=== PATIENT | female | born 1995 | race Caucasian/White ===

== ENCOUNTER → 2020-06-08 | Outpatient (CLI) | payer OTHER ==
--- NOTE | 2020-06-08 15:49 | US ---
EXAMINATION TYPE: US transvaginal DATE OF EXAM: 06/08/2020 COMPARISON: NONE CLINICAL HISTORY: R10.2 PELVIC PAIN. arm implant control for 6 years, pelvic pain for 5 days. p terra has not had a period for 6 years since on control and just started bleeding 4 days ago TECHNIQUE: Transvaginal (TV), patient bladder not fully distended Date of LMP: 06/04/20 EXAM MEASUREMENTS: Uterus: 5.7 x 2.5 x 3.1 cm Endometrial Stripe: 0.2 cm Right Ovary: 2.6 x 1.4 x 2.4 cm Left Ovary: 2.4 x 1.4 x 1.6 cm 1. Uterus: Anteverted fluid within cervical canal 2. Endometrium: fluid within 3. Right Ovary: follicles noted 4. Left Ovary: appears wnl 5. Bilateral Adnexa: large amount of peristalsing bowel content 6. Posterior cul-de-sac: appears wnl IMPRESSION: Small amount of endocervical fluid. Examination is otherwise unremarkable.
== END | disposition home or self-care (01) ==
LOC: RADUSWWP 15:06
PROVIDERS: ATTEND Obstetrics & Gynecology
DX: R10.2 Pelvic and perineal pain (principal)
CPT/HCPCS: 76830

== ENCOUNTER 2021-01-17 15:09 | Emergency (ER) | payer OTHER ==
[2021-01-17 15:22] VITALS: BP 129/71; PULSE 133; RESP 18; TEMP 98.2
[2021-01-17] MEDS ORDERED: ONDANSETRON 4 MG/2 ML VIAL IVP STA (15:39)
[2021-01-17] MEDS ORDERED: MORPHINE SULFATE 4 MG/ML SYRINGE IV STA (15:39)
[2021-01-17] MEDS ORDERED: diphenhydrAMINE 50 MG/ML 1 ML VIAL IVP STA (15:39)
[2021-01-17] MEDS ORDERED: SODIUM CHLORIDE 0.9% 1,000 ML IV STA (15:39)
--- NOTE | 2021-01-17 15:44 | ED ---
Headache HPI - General Chief Complaint: Headache Stated Complaint: Migraine, vomiting Time Seen by Provider: 01/17/21 15:29 Source: RN notes reviewed Mode of arrival: ambulatory Limitations: no limitations - History of Present Illness Initial Comments: 25-year-old female presents to the emergency department complaining of increased frequency of headache with nausea and vomiting. He noted that for the past 3 weeks she has been having 4-5 headaches per week with nausea and vomiting. She noted that she has had these headaches in the past but they're more frequent currently. She denied any increase in stress, anxiety, life stressors. She did note that there is a family history of migraines with her mom and grandma. She was in no apparent distress or discomfort while sitting up in bed during exam and interview. She noted that she was recently prescribed Imitrex by her primary care which a been helping but today it has been. She said the pain was moderate and Tylenol wasn't helping relieve it area she noted that she has had some phonophobia, when her dog bark she notices that her head pulsates when she is having headaches. She denied any change in vision lightheadedness dizziness chest pain shortness of breath cough fever fatigue chills diarrhea constipation. - Related Data Home Medications Medication Instructions Recorded Confirmed Dextroamphetamine/Amphetamine 20 mg PO BID PRN 01/17/21 01/17/21 [Adderall] Etonogestrel/Ethinyl Estradiol 1 ring VG Q84D 01/17/21 01/17/21 [Eluryng Vaginal Ring] SUMAtriptan succinate [Imitrex] 50 mg PO DAILY PRN 01/17/21 01/17/21 Allergies Allergy/AdvReac Type Severity Reaction Status Date / Time cephalexin [From Keflex] Allergy Rash/Hives Verified 01/17/21 15:22 nickel Allergy Rash/Hives Verified 01/17/21 15:22 Review of Systems ROS Statement: Those systems with pertinent positive or pertinent negative responses have been documented in the HPI. ROS Other: All systems not noted in ROS Statement are negative. Past Medical History Additional Past Medical History / Comment(s): Headaches, IBS History of Any Multi-Drug Resistant Organisms: None Reported Past Surgical History: Adenoidectomy, Tonsillectomy Past Psychological History: No Psychological Hx Reported Smoking Status: Never smoker Past Alcohol Use History: None Reported Past Drug Use History: None Reported General Exam Limitations: no limitations General appearance: alert, in no apparent distress Head exam: Present: atraumatic, normocephalic, normal inspection Eye exam: Present: normal appearance, PERRL, EOMI. Absent: scleral icterus, conjunctival injection, periorbital swelling ENT exam: Present: normal exam, mucous membranes moist Neck exam: Present: normal inspection. Absent: tenderness, meningismus, lymp hadenopathy Respiratory exam: Present: normal lung sounds bilaterally. Absent: respiratory distress, wheezes, rales, rhonchi, stridor Cardiovascular Exam: Present: regular rate, normal rhythm, normal heart sounds. Absent: systolic murmur, diastolic murmur, rubs, gallop, clicks GI/Abdominal exam: Present: soft, normal bowel sounds. Absent: distended, tenderness, guarding, rebound, rigid Extremities exam: Present: normal inspection, full ROM, normal capillary refill. Absent: tenderness, pedal edema, joint swelling, calf tenderness Back exam: Present: normal inspection Neurological exam: Present: alert, oriented X3, CN II-XII intact Psychiatric exam: Present: normal affect, normal mood Skin exam: Present: warm, dry, intact, normal color. Absent: rash Course Vital Signs 01/17/21 15:19 Temperature 98.2 F Pulse Rate 133 H Respiratory 18 Rate Blood Pressure 129/71 O2 Sat by Pulse 100 Oximetry - Reevaluation(s) Reevaluation #1: 01/17/21 16:44 Upon reevaluation patient was resting in bed comfortably stating that she was feeling a little bit better and the fluids and then occasional helping. Medical Decision Making - Medical Decision Making 25-year-old female complaining of headache with nausea and vomiting. 1 L of normal saline, 4 mg morphine, 4 mg of Zofran, 50 mg of Benadryl ordered. - Lab Data Result diagrams: 01/17/21 16:09 Lab Results 01/17/21 Range/Units 16:09 Sodium 139 (137-145) mmol/L Potassium 4.2 (3.5-5.1) mmol/L Chloride 106 (98-107) mmol/L Carbon Dioxide 24 (22-30) mmol/L Anion Gap 9 mmol/L BUN 14 (7-17) mg/dL Creatinine 0.74 (0.52-1.04) mg/dL Est GFR (CKD-EPI)AfAm >90 (>60 ml/min/1.73 sqM) Est GFR (CKD-EPI)NonAf >90 (>60 ml/min/1.73 sqM) Glucose 80 (74-99) mg/dL Calcium 9.5 (8.4-10.2) mg/dL Total Bilirubin 0.6 (0.2-1.3) mg/dL AST 20 (14-36) U/L ALT 17 (4-34) U/L Alkaline Phosphatase 49 (38-126) U/L Total Protein 7.3 (6.3-8.2) g/dL Albumin 4.4 (3.5-5.0) g/dL Disposition Clinical Impression: Migraine headache, Nausea and vomiting Disposition: HOME SELF-CARE Condition: Stable Instructions (If sedation given, give patient instructions): Acute Headache (ED) Additional Instructions: Please return to the Emergency Department if symptoms worsen or any other concerns. Follow-up with primary care 1-2 day, go to scheduled MRI as planned. Continue to take Imitrex that was prescribed by PCP. As needed. Increase fluid intake. Is patient prescribed a controlled substance at d/c from ED?: No Referrals: Chai Yeung MD [Primary Care Provider] - 1-2 days Time of Disposition: 16:45
[2021-01-17] MEDS ORDERED: KETOROLAC 15 MG/ML 1 ML VIAL IVP STA (16:03)
[2021-01-17 16:39] LABS: ALT 17 U/L (4-34); AST 20 U/L (14-36); African American GFR (CKD) >90 (>60 ml/min/1.73 sqM); Albumin 4.4 g/dL (3.5-5.0); Alkaline Phosphatase 49 U/L (38-126); Anion Gap 9 mmol/L; Blood Urea Nitrogen 14 mg/dL (7-17); Calcium 9.5 mg/dL (8.4-10.2); Carbon Dioxide 24 mmol/L (22-30); Chloride 106 mmol/L (98-107); Glucose 80 mg/dL (74-99); Non-African American GFR(CKD) >90 (>60 ml/min/1.73 sqM); Potassium 4.2 mmol/L (3.5-5.1); Sodium 139 mmol/L (137-145); Total Bilirubin 0.6 mg/dL (0.2-1.3); Total Protein 7.3 g/dL (6.3-8.2)
== END 2021-01-17 17:35 | disposition home or self-care (01) ==
LOC: EC 15:09
DX: G43.909 Migraine, unspecified, not intractable, without status migrainosus (principal); Z79.899 Other long term (current) drug therapy; Z88.1 Allergy status to other antibiotic agents; Z91.048 Other nonmedicinal substance allergy status
CPT/HCPCS: 36415; 80053; 99283; 96374; 96375 ×2; 96361; J1200; J2405; J1885

== ENCOUNTER → 2021-01-24 | Outpatient (CLI) | payer OTHER ==
--- NOTE | 2021-01-24 13:57 | MR ---
EXAMINATION TYPE: MR brain wo con DATE OF EXAM: 01/24/2021 COMPARISON: NONE HISTORY: Migraines increasing in frequency TECHNIQUE: Multiplanar, multisequence imaging of the brain and brainstem is performed without IV cont rast. FINDINGS: Diffusion weighted images demonstrate no evidence of a recent infarct or other diffusion abnormality. There is no extraaxial fluid collection or significant white matter signal abnormality. The ventricu lar system and cisternal spaces are normal in size and appearance. The brain volume is age appropria te. Midline structures demonstrate normal morphology. The craniocervical junction appears within normal limits. Normal vascular flow voids are present. Incidental dominant or larger caliber left vertebral artery. Some artifact distortion at the level of the bilateral globes. Mild mucosal thickening involv ing left ethmoid sinuses. IMPRESSION: No significant white matter changes. No hydrocephalus or Chiari malformation. Mild left-s ided chronic ethmoid sinus disease otherwise unremarkable study
== END | disposition home or self-care (01) ==
LOC: RADMRIMAIN 12:28
PROVIDERS: ATTEND Nurse Practitioner Family
DX: J32.2 Chronic ethmoidal sinusitis (principal); G43.909 Migraine, unspecified, not intractable, without status migrainosus
CPT/HCPCS: 70551

== ENCOUNTER 2022-10-24 08:10 | Emergency (ER) | payer OTHER ==
[2022-10-24 08:15] VITALS: RESP 16; TEMP 98.5
[2022-10-24] MEDS ORDERED: diphenhydrAMINE 50 MG/ML 1 ML VIAL IVP STA (08:22)
[2022-10-24] MEDS ORDERED: SODIUM CHLORIDE 0.9% 1,000 ML IV STA (08:22)
[2022-10-24] MEDS ORDERED: methylPREDNISolone SOD SUCCI 125 MG/2 ML VIAL IV STA (08:23)
--- NOTE | 2022-10-24 08:27 | ED ---
General Adult HPI - General Chief complaint: Nausea/Vomiting/Diarrhea Stated complaint: vomiting Time Seen by Provider: 10/24/22 08:18 Source: patient, RN notes reviewed, old records reviewed Mode of arrival: ambulatory Limitations: no limitations - History of Present Illness Initial comments: This is a nontoxic 26-year-old female that presents to the emergency room with complaints of nausea and vomiting related to migraine headache since 3 AM. Patient has a history of migraine headaches, states this is similar. Denies any fevers or abdominal pain. Denies any chance of . Has been prescribed Imitrex in the past for migraines however states she does not like the way the medication makes her feel. Last headache was several months ago. -: hour(s) (5) Location: head Radiation: non-radiation Severity scale (1-10): 6 Quality: constant Consistency: constant Associated Symptoms: nausea/vomiting Treatments Prior to Arrival: none - Related Data Home Medications Medication Instructions Recorded Confirmed Dextroamphetamine/Amphetamine 20 mg PO BID PRN 01/17/21 01/17/21 [Adderall] Etonogestrel/Ethinyl Estradiol 1 ring VG Q84D 01/17/21 01/17/21 [Eluryng Vaginal Ring] SUMAtriptan succinate [Imitrex] 50 mg PO DAILY PRN 01/17/21 01/17/21 Allergies Allergy/AdvReac Type Severity Reaction Status Date / Time cephalexin [From Keflex] Allergy Rash/Hives Verified 10/24/22 08:13 nickel Allergy Rash/Hives Verified 10/24/22 08:13 Patient : No Review of Systems ROS Statement: Those systems with pertinent positive or pertinent negative responses have been documented in the HPI. ROS Other: All systems not noted in ROS Statement are negative. Past Medical History Additional Past Medical History / Comment(s): Headaches, IBS History of Any Multi-Drug Resistant Organisms: None Reported Past Surgical History: Adenoidectomy, Tonsillectomy Past Psychological History: No Psychological Hx Reported Smoking Status: Never smoker Past Alcohol Use History: None Reported Past Drug Use History: None Reported General Exam Limitations: no limitations General appearance: alert, in no apparent distress Head exam: Present: atraumatic, normal inspection Eye exam: Absent: scleral icterus, conjunctival injection, periorbital swelling ENT exam: Present: mucous membranes moist Neck exam: Absent: tenderness, meningismus Respiratory exam: Present: normal lung sounds bilaterally. Absent: respiratory distress, accessory muscle use Cardiovascular Exam: Present: regular rate GI/Abdominal exam: Present: soft. Absent: distended, tenderness, rigid Extremities exam: Present: normal capillary refill. Absent: pedal edema Back exam: Absent: tenderness, CVA tenderness (R), CVA tenderness (L) Neurological exam: Present: alert, oriented X3 Psychiatric exam: Present: normal affect, normal mood Skin exam: Present: warm, normal color, diaphoretic. Absent: cyanosis, petechiae, pallor Course Vital Signs 10/24/22 10/24/22 08:13 09:59 Temperature 98.5 F Pulse Rate 70 71 Respiratory 16 16 Rate Blood Pressure 111/74 122/91 O2 Sat by Pulse 100 Oximetry Medical Decision Making - Medical Decision Making Patient presents with migraine type headache with nausea and vomiting. States this is similar to her previous headaches. She has no focal neurological deficits. Abdomen is soft and nontender. Denies any chance of . No vision changes, no focal neurological deficits. No red flag signs or symptoms. She was given IV fluids, Solu-Medrol, Benadryl and Reglan with relief. She states she feels much better and ready to be discharged home. Vital signs are stable. She was instructed to follow-up with her primary care doctor next week. Case discussed with Dr. Sharma Disposition Clinical Impression: Headache Disposition: HOME SELF-CARE Condition: Good Instructions (If sedation given, give patient instructions): Acute Headache (ED), Acute Nausea and Vomiting (ED) Additional Instructions: Increase your fluid intake. Follow-up with your primary care doctor. Return to the emergency room with any new or concerning symptoms. Is patient prescribed a controlled substance at d/c from ED?: No Referrals: Chai Yeung MD [REFERRING] - 1-2 days Time of Disposition: 09:15
[2022-10-24] MEDS ORDERED: METOCLOPRAMIDE 5 MG/ML 2 ML VIAL IVP STA (08:35)
[2022-10-24 10:00] VITALS: BP 122/91; PULSE 71
== END 2022-10-24 10:00 | disposition home or self-care (01) ==
LOC: EC 08:10
DX: R51.9 Headache, unspecified (principal); Z88.1 Allergy status to other antibiotic agents; Z91.048 Other nonmedicinal substance allergy status
CPT/HCPCS: 99283; 96374; 96375; 96361; J1200; J2765; J2930

== ENCOUNTER 2023-03-23 02:48 | Emergency (ER) | payer BC, OTHER ==
[2023-03-23 02:55] VITALS: TEMP 97.8
[2023-03-23] MEDS ORDERED: diphenhydrAMINE 50 MG CAP PO STA (03:03)
[2023-03-23] MEDS ORDERED: methylPREDNISolone SOD SUCCI 125 MG/2 ML VIAL IM ONE (03:04)
--- NOTE | 2023-03-23 03:19 | ED ---
Allergic Reaction HPI - General Chief complaint: Allergic Reaction Stated complaint: Hives outbreak Time Seen by Provider: 03/23/23 02:56 Source: patient Mode of arrival: ambulatory Limitations: no limitations - History of Present Illness Initial Comments: Patient is a 27-year-old female presenting with chief complaint of hives. Patient states she has been experiencing hives all over the body for the last week. She recently saw her web site specialist received a steroid injection which she states has not helped alleviate her symptoms. This evening she started having burning and itching to the face and ears. She took 2 hydroxyzine prior to arrival. No difficulty breathing or swallowing. No new medications, foods, or topical products. No chest pain or palpitations. - Related Data Home Medications Medication Instructions Recorded Confirmed Dextroamphetamine/Amphetamine 20 mg PO BID PRN 01/17/21 01/17/21 [Adderall] Etonogestrel/Ethinyl Estradiol 1 ring VG Q84D 01/17/21 01/17/21 [Eluryng Vaginal Ring] SUMAtriptan succinate [Imitrex] 50 mg PO DAILY PRN 01/17/21 01/17/21 Previous Rx's Medication Instructions Recorded methylPREDNISolone Dose Pack 4 mg PO DIRECTED #1 packet 03/23/23 [Medrol Dose Pack] Allergies Allergy/AdvReac Type Severity Reaction Status Date / Time cephalexin [From Keflex] Allergy Rash/Hives Verified 10/24/22 08:13 cobalt chloride Allergy Unknown Verified 03/23/23 02:58 neomycin Allergy Unknown Verified 03/23/23 02:58 nickel Allergy Rash/Hives Verified 10/24/22 08:13 wool Allergy Unknown Verified 03/23/23 02:58 amerchol L101 Allergy Unknown Uncoded 03/23/23 02:58 Carba Mix Allergy Unknown Uncoded 03/23/23 02:58 glyceryl monothioglycolate Allergy Unknown Uncoded 03/23/23 02:58 Review of Systems ROS Statement: Those systems with pertinent positive or pertinent negative responses have been documented in the HPI. ROS Other: All systems not noted in ROS Statement are negative. Past Medical History Additional Past Medical History / Comment(s): Headaches, IBS History of Any Multi-Drug Resistant Organisms: None Reported Past Surgical History: Adenoidectomy, Tonsillectomy Past Psychological History: No Psychological Hx Reported Smoking Status: Never smoker Past Alcohol Use History: None Reported Past Drug Use History: None Reported General Exam Limitations: no limitations General appearance: alert, in no apparent distress Head exam: Present: atraumatic, normocephalic, normal inspection Eye exam: Present: normal appearance, EOMI. Absent: periorbital swelling Respiratory exam: Present: normal lung sounds bilaterally. Absent: respiratory distress, wheezes, rales, rhonchi, stridor Cardiovascular Exam: Present: regular rate, normal rhythm, normal heart sounds. Absent: systolic murmur, diastolic murmur, rubs, gallop, clicks Neurological exam: Present: alert, oriented X3, CN II-XII intact Psychiatric exam: Present: normal affect, normal mood Skin exam: Present: urticaria Course Vital Signs 03/23/23 03/23/23 02:50 03:52 Temperature 97.8 F Pulse Rate 79 76 Respiratory 16 18 Rate Blood Pressure 128/79 O2 Sat by Pulse 99 99 Oximetry Medical Decision Making - Medical Decision Making Was pt. sent in by a medical professional or institution (, PA, MIXER DRIVER, urgent care, hospital, or correction...) When possible be specific @ -No Did you speak to anyone other than the patient for history (EMS, parent, family, police, friend...)? What history was obtained from this source @ -No Did you review nursing and triage notes (agree or disagree)? Why? @ -I reviewed and agree with nursing and triage notes Were old charts reviewed (outside hosp., previous admission, EMS record, old EKG, old radiological studies, urgent care reports/EKG's, correction records)? Report findings @ -No old charts were reviewed Differential Diagnosis (chest pain, altered mental status, abdominal pain women, abdominal pain men, vaginal bleeding, weakness, fever, dyspnea, syncope, headache, dizziness, GI bleed, back pain, seizure, CVA, palpatations, mental health, musculoskeletal)? @ -Differential includes urticaria, cellulitis, this is not an all inclusive list EKG interpreted by me (3pts min.). @ -As above X-rays interpreted by me (1pt min.). @ -None done CT interpreted by me (1pt min.). @ -None done U/S interpreted by me (1pt. min.). @ -None done What testing was considered but not performed or refused? (CT, X-rays, U/S, labs)? Why? @ -None What meds were considered but not given or refused? Why? @ -None Did you discuss the management of the patient with other professionals (professionals i.e. , PA, MIXER DRIVER, lab, RT, psych nurse, social services technician, mental measurements teacher, teacher, credit review officer, nurse case manager)? Give summary @ -No Was smoking cessation discussed for >3mins.? @ -No Was critical care preformed (if so, how long)? @ -No Were there social determinants of health that impacted care today? How? (Homelessness, low income, unemployed, alcoholism, drug addiction, transportation, low edu. Level, literacy, decrease access to med. care, snf, rehab)? @ -No Was there de-escalation of care discussed even if they declined (Discuss DNR or withdrawal of care, Hospice)? DNR status @ -No What co-morbidities impacted this encounter? (DM, HTN, Smoking, COPD, CAD, Cancer, CVA, ARF, Chemo, Hep., AIDS, mental health diagnosis, sleep apnea, morbid obesity)? @ -None Was patient admitted / discharged? Hospital course, mention meds given and route, prescriptions, significant lab abnormalities, going to OR and other pertinent info. @ -Patient is a 27-year-old female presenting with chief complaint of hives that of ongoing for the last week. This evening they spread to her face which was very uncomfortable. On physical examination heart and lungs are clear to a uscultation, no evidence of angioedema. Patient was given Solu-Medrol and Benadryl. She is given a Medrol Dosepak for home. Instructed to follow-up with her web site specialist. Follow-up with PCP. Report back to ER with any new or worsening symptoms. Discussed return parameters and answered all questions. Patient conveyed verbal understanding and agreed to the plan. I discussed this case in detail with my attending Dr. Dawson Undiagnosed new problem with uncertain prognosis? @ -No Drug Therapy requiring intensive monitoring for toxicity (Heparin, Nitro, Insulin, Cardizem)? @ -No Were any procedures done? @ -No Diagnosis/symptom? @ -Urticaria Acute, or Chronic, or Acute on Chronic? @ -Acute Uncomplicated (without systemic symptoms) or Complicated (systemic symptoms)? @ -Uncomplicated Side effects of treatment? @ -No Exacerbation, Progression, or Severe Exacerbation? @ -No Poses a threat to life or bodily function? How? (Chest pain, [place], NH, pneumonia, PE, COPD, DKA, ARF, appy, cholecystitis, CVA, Diverticulitis, Homicidal, Suicidal, threat to staff... and all critical care pts) @ -No Disposition Clinical Impression: Allergic reaction Disposition: HOME SELF-CARE Condition: Good Instructions (If sedation given, give patient instructions): Urticaria (ED) Additional Instructions: Follow-up with PCP and web site specialist. Report back to ER with any new or worsening symptoms. Take medication as prescribed. Prescriptions: methylPREDNISolone Dose Pack [Medrol Dose Pack] 4 mg PO DIRECTED #1 packet Is patient prescribed a controlled substance at d/c from ED?: No Referrals: Abdoul Snow NPC [Primary Care Provider] - 1-2 days Time of Disposition: 03:50
[2023-03-23 03:53] VITALS: BP 128/79; PULSE 76; RESP 18
== END 2023-03-23 03:54 | disposition home or self-care (01) ==
LOC: EC 02:48
DX: T78.40XA Allergy, unspecified, initial encounter (principal); Z88.5 Allergy status to narcotic agent; Z88.1 Allergy status to other antibiotic agents; Z88.8 Allergy status to other drugs, medicaments and biological substances; Z88.6 Allergy status to analgesic agent
CPT/HCPCS: 99283; 96372; J2930

== ENCOUNTER 2025-04-18 21:18 | Emergency (ER) | payer BC ==
[2025-04-18] MEDS: SODIUM CHLORIDE 0.9% 1,000 ML IV ONE (22:13)
--- NOTE | 2025-04-18 22:14 | ED ---
Nausea/Vomiting/Diarrhea HPI - General Chief complaint: Nausea/Vomiting/Diarrhea Stated complaint: 8 weeks preg,Vomiting Time Seen by Provider: 04/18/25 21:37 Source: patient, RN notes reviewed Mode of arrival: ambulatory Limitations: no limitations - History of Present Illness Initial comments: This is a 29-year-old female who presents to the emergency department for nausea and vomiting in . Patient is 8 weeks and . States that symptoms have been going on for the last couple of days and she has been unable to keep anything down. She has some discomfort in the left mid abdomen. Denies any vaginal bleeding. She has an upcoming appointment with an [facility] next month at a facility closer to [place]. She had attempted to get into [facility], however they denied her. MD complaint: nausea, vomiting - Related Data Home Medications Medication Instructions Recorded Confirmed Dextroamphetamine/Amphetamine 20 mg PO BID PRN 01/17/21 01/17/21 [Adderall] Etonogestrel/Ethinyl Estradiol 1 ring VG Q84D 01/17/21 01/17/21 [Eluryng Vaginal Ring] SUMAtriptan succinate [Imitrex] 50 mg PO DAILY PRN 01/17/21 01/17/21 Previous Rx's Medication Instructions Recorded methylPREDNISolone Dose Pack 4 mg PO DIRECTED #1 packet 03/23/23 [Medrol Dose Pack] Metoclopramide [Reglan] 10 mg PO Q6H PRN #30 tab 04/19/25 Ondansetron Odt [Zofran Odt] 4 mg PO Q8HR PRN #30 tab 04/19/25 Allergies Allergy/AdvReac Type Severity Reaction Status Date / Time cephalexin [From Keflex] Allergy Rash/Hives Verified 04/18/25 21:22 cobalt chloride Allergy Unknown Verified 04/18/25 21:22 neomycin Allergy Unknown Verified 04/18/25 21:22 nickel Allergy Rash/Hives Verified 04/18/25 21:22 wool Allergy Unknown Verified 04/18/25 21:22 amerchol L101 Allergy Unknown Uncoded 04/18/25 21:22 Carba Mix Allergy Unknown Uncoded 04/18/25 21:22 glyceryl monothioglycolate Allergy Unknown Uncoded 04/18/25 21:22 Review of Systems ROS Statement: Those systems with pertinent positive or pertinent negative responses have been documented in the HPI. ROS Other: All systems not noted in ROS Statement are negative. Past Medical History Additional Past Medical History / Comment(s): Headaches, IBS History of Any Multi-Drug Resistant Organisms: None Reported Past Surgical History: Adenoidectomy, Tonsillectomy Past Psychological History: No Psychological Hx Reported Smoking Status: Never smoker Past Alcohol Use History: None Reported Past Drug Use History: None Reported General Exam Limitations: no limitations General appearance: alert, in no apparent distress Head exam: Present: atraumatic, normocephalic, normal inspection Respiratory exam: Present: normal lung sounds bilaterally. Absent: respiratory distress, wheezes, rales, rhonchi, stridor Cardiovascular Exam: Present: regular rate, normal rhythm Neurological exam: Present: alert, oriented X3, CN II-XII intact Psychiatric exam: Present: normal affect, normal mood Skin exam: Present: warm, dry, intact, normal color. Absent: rash Course Vital Signs 04/18/25 04/18/25 04/18/25 21:20 22:31 23:36 Temperature 97.6 F Pulse Rate 76 68 74 Respiratory 16 18 18 Rate Blood Pressure 121/82 116/74 116/70 O2 Sat by Pulse 99 100 100 Oximetry 04/19/25 00:13 Temperature 98.1 F Pulse Rate 78 Respiratory 18 Rate Blood Pressure 98/60 O2 Sat by Pulse 100 Oximetry Medical Decision Making - Medical Decision Making This is a 29 year old female who presents to the emergency department for nausea and vomiting in . Was pt. sent in by a medical professional or institution? @ -No Did you speak to anyone other than the patient for history? @ -No Did you review nursing and triage notes? @ -Yes, and I agree, it is accurate with regards to the patient's symptoms. Were old charts reviewed? @ -No Differential Diagnosis? @ -Differential Nausea and Vomiting: Gastroenteritis, cholecystitis, appendicitis, pancreatitis, migraine, benign positional vertigo, food borne illness, pyelonephritis, irritable bowel syndrome, influenza, Covid, GERD, incarcerated hernia, intestinal obstruction, this is not meant to be an all-inclusive list. EKG interpreted by me (3pts min.)? @ -Not obtained X-rays interpreted by me (1pt min.)? @ -Not obtained CT interpreted by me (1pt min.)? @ -Not obtained U/S interpreted by me (1pt. min.)? @ -Obstetrics ultrasound obtained. My interpretation identifies a single live IUP. What testing was considered but not performed? (CT, X-rays, U/S, labs)? Why? @ -None What meds were considered but not given? Why? @ -None Did you discuss the management of the patient with other professionals? @ -No Did you reconcile home meds? @ -No Was smoking cessation discussed for >3mins.? @ -No Was critical care preformed (if so, how long)? @ -No Were there social determinants of health that impacted care today? How? (Homelessness, low income, unemployed, alcoholism, drug addiction, transport ation, low edu. Level, literacy, decrease access to med. care, prison, rehab)? @ -No Was there de-escalation of care discussed even if they declined? (Discuss DNR or withdrawal of care, Hospice)? @ -No What co-morbidities impacted this encounter? (DM, HTN, Smoking, COPD, CAD, Cancer, CVA, Hep., AIDS, mental health diagnosis, sleep apnea, morbid obesity)? @ - Was patient admitted / discharged? @ -Discharged. Lab work unremarkable. Urinalysis negative for signs of infection. Obstetrics ultrasound obtained demonstrating a single live intrauterine with an estimated age of 6 weeks 4 days by crown-rump length. She was initially treated with IV fluids, Reglan, Benadryl, and vitamin B6. She had temporary improvement in symptoms, however nausea then returned. She was then given a dose of Zofran with more sustained improvement. She was tolerating oral intake at that point and was comfortable with discharge home. Advised the combination of [id number] vitamin B6 and Unisom for further management. However, Reglan and Zofran were prescribed as well in the event that is not effective. She will follow-up with her [facility] M[facility] as scheduled next month. Patient discharged home in stable condition. Case discussed with ED attending Dr. Sharma. Return precautions reviewed in depth, the patient is instructed to return to the emergency department with any new, worsening, or concerning symptoms. Patient verbalized understanding. Undiagnosed new problem with uncertain prognosis? @ -None Drug Therapy requiring intensive monitoring for toxicity (Heparin, Nitro, Insulin, Cardizem)? @ -None Were any procedures done? @ -None Diagnosis/symptom? @ -Nausea and vomiting in , abdominal pain Acute, or Chronic, or Acute on Chronic? @ -Acute Uncomplicated (without systemic symptoms) or Complicated (systemic symptoms)? @ -Uncomplicated Side effects of treatment? @ -None Exacerbation, Progression, or Severe Exacerbation] @ -Not applicable Poses a threat to life or bodily function? @ -No - Lab Data Result diagrams: 04/18/25 22:28 04/18/25 22: Lab Results 04/18/25 04/18/25 04/18/25 Range/Units 22: 22: 22:28 WBC 10.20 H (4.50-10.00) 10*3/uL RBC 4.41 (4.10-5.20) 10*6/uL Hgb 13.8 (12.0-15.0) g/dL Hct 38.8 (37.2-46.3) % MCV 88.0 (80.0-97.0) fL MCH 31.3 (27.0-32.0) pg MCHC 35.6 (32.0-37.0) g/dL Plt Count 203 (140-440) 10*3/uL MPV 10.5 (9.5-12.2) fL Immature Gran % (Auto) 0.3 % Neutrophils % 81.0 % Lymphocytes % 14.3 % Monocytes % 4.0 % Eosinophils % 0.0 % Basophils % 0.4 % Immature Gran # 0.03 (0.00-0.04) 10*3/uL Neutrophils # 8.26 H (1.80-7.70) 10*3/uL Lymphocytes # 1.46 (0.90-5.00) 10*3/uL Monocytes # 0.41 (0.20-1.00) 10*3/uL Eosinophils # 0.00 L (0.04-0.35) 10*3/uL Basophils # 0.04 (0.00-0.10) 10*3/uL Sodium 137 (137-145) mmol/L Potassium 4.0 (3.5-5.1) mmol/L Chloride 103 (98-107) mmol/L Carbon Dioxide 20 L (22-30) mmol/L Anion Gap 14 mmol/L BUN 10 (7-17) mg/dL Creatinine 0.47 L (0.52-1.04) mg/dL Est GFR (CKD-EPI)AfAm >90 (>60 ml/min/1.73 sqM) Est GFR (CKD-EPI)NonAf >90 (>60 ml/min/1.73 sqM) Glucose 95 (74-99) mg/dL Calcium 10.1 (8.4-10.2) mg/dL Total Bilirubin 0.7 (0.2-1.3) mg/dL AST 29 (14-36) U/L ALT 27 (4-34) U/L Alkaline Phosphatase 58 (38-126) U/L Total Protein 7.8 (6.3-8.2) g/dL Albumin 5.1 H (3.5-5.0) g/dL HCG, Quant 48237.0 mIU/mL Urine Color Urine Appearance (Clear) Urine pH (5.0-8.0) Ur Specific Waucoma (1.001-1.035) Urine Protein (Negative) Urine Glucose (UA) (Negative) Urine Ketones (Negative) Urine Blood (Negative) Urine Nitrite (Negative) Urine Bilirubin (Negative) Urine Urobilinogen (<2.0) mg/dL Ur Leukocyte Esterase (Negative) Urine RBC (0-5) /hpf Urine WBC (0-5) /hpf Ur Squamous Epith Cells (0-4) /hpf Urine Bacteria (None) /hpf Urine Mucus (None) /hpf Blood Type O Positive Blood Type Recheck No Previous Record Bld Type Recheck Status [facility] ONLY 04/18/25 Range/Units 23:06 WBC (4.50-10.00) 10*3/uL RBC (4.10-5.20) 10*6/uL Hgb (12.0-15.0) g/dL Hct (37.2-46.3) % MCV (80.0-97.0) fL MCH (27.0-32.0) pg MCHC (32.0-37.0) g/dL Plt Count (140-440) 10*3/uL MPV (9.5-12.2) fL Immature Gran % (Auto) % Neutrophils % % Lymphocytes % % Monocytes % % Eosinophils % % Basophils % % Immature Gran # (0.00-0.04) 10*3/uL Neutrophils # (1.80-7.70) 10*3/uL Lymphocytes # (0.90-5.00) 10*3/uL Monocytes # (0.20-1.00) 10*3/uL Eosinophils # (0.04-0.35) 10*3/uL Basophils # (0.00-0.10) 10*3/uL Sodium (137-145) mmol/L Potassium (3.5-5.1) mmol/L Chloride (98-107) mmol/L Carbon Dioxide (22-30) mmol/L Anion Gap mmol/L BUN (7-17) mg/dL Creatinine (0.52-1.04) mg/dL Est GFR (CKD-EPI)AfAm (>60 ml/min/1.73 sqM) Est GFR (CKD-EPI)NonAf (>60 ml/min/1.73 sqM) Glucose (74-99) mg/dL Calcium (8.4-10.2) mg/dL Total Bilirubin (0.2-1.3) mg/dL AST (14-36) U/L ALT (4-34) U/L Alkaline Phosphatase (38-126) U/L Total Protein (6.3-8.2) g/dL Albumin (3.5-5.0) g/dL HCG, Quant mIU/mL Urine Color Yellow Urine Appearance Cloudy H (Clear) Urine pH 6.0 (5.0-8.0) Ur Specific Waucoma 1.032 (1.001-1.035) Urine Protein Trace H (Negative) Urine Glucose (UA) Negative (Negative) Urine Ketones 4+ H (Negative) Urine Blood Negative (Negative) Urine Nitrite Negative (Negative) Urine Bilirubin Negative (Negative) Urine Urobilinogen <2.0 (<2.0) mg/dL Ur Leukocyte Esterase Negative (Negative) Urine RBC 3 (0-5) /hpf Urine WBC 2 (0-5) /hpf Ur Squamous Epith Cells 3 (0-4) /hpf Urine Bacteria Occasional H (None) /hpf Urine Mucus Many H (None) /hpf Blood Type Blood Type Recheck Bld Type Recheck Status - Radiology Data Radiology results: report reviewed, image reviewed Disposition Clinical Impression: Nausea and vomiting during , Abdominal pain Disposition: HOME SELF-CARE Instructions (If sedation given, give patient instructions): Nausea and Vomiting in (ED) Additional Instructions: Return to the emergency department with any new, worsening, or concerning symptoms. You can take the Reglan up to every 6 hours as needed for nausea and vomiting. If that is not effective you can take the Zofran up to every 8 hours as needed for nausea and vomiting. [id number] vitamin B6 and Unisom supplements can also help. Follow-up with your [facility] as scheduled. Prescriptions: Metoclopramide [Reglan] 10 mg PO Q6H PRN #30 tab PRN Reason: Nausea And Vomiting Ondansetron Odt [Zofran Odt] 4 mg PO Q8HR PRN #30 tab PRN Reason: Nausea And Vomiting Is patient prescribed a controlled substance at d/c from ED?: No Referrals: None,Stated [Primary Care Provider] - 1-2 days Time of Disposition: 00:06
[2025-04-18] MEDS: METOCLOPRAMIDE 5 MG/ML 2 ML VIAL IVP STA (22:15)
[2025-04-18] MEDS: diphenhydrAMINE 50 MG/ML 1 ML VIAL IVP STA (22:17)
[2025-04-18] MEDS: PYRIDOXINE 100 MG/ML 1 ML VIAL IVP STA (22:18)
[2025-04-18 22:32] VITALS: RESP 18
[2025-04-18 22:36] LABS: Basophils # (A) 0.04 10*3/uL (0.00-0.10); Basophils % (A) 0.4 %; HCT 38.8 % (37.2-46.3); HGB 13.8 g/dL (12.0-15.0); Lymphocytes # (A) 1.46 10*3/uL (0.90-5.00); Lymphocytes % (A) 14.3 %; MCH 31.3 pg (27.0-32.0); MCHC 35.6 g/dL (32.0-37.0); Mean Platelet Volume 10.5 fL (9.5-12.2); Monocytes # (A) 0.41 10*3/uL (0.20-1.00); Neutrophils # (A) 8.26 10*3/uL (1.80-7.70); Platelet Count 203 10*3/uL (140-440); RBC 4.41 10*6/uL (4.10-5.20); RDW 13.1 % (11.5-14.5)
[2025-04-18 22:46] LABS: ALT 27 U/L (4-34); AST 29 U/L (14-36); African American GFR (CKD) >90 (>60 ml/min/1.73 sqM); Albumin 5.1 g/dL (3.5-5.0); Alkaline Phosphatase 58 U/L (38-126); Anion Gap 14 mmol/L; Blood Urea Nitrogen 10 mg/dL (7-17); Calcium 10.1 mg/dL (8.4-10.2); Carbon Dioxide 20 mmol/L (22-30); Chloride 103 mmol/L (98-107); Glucose 95 mg/dL (74-99); Non-African American GFR(CKD) >90 (>60 ml/min/1.73 sqM); Sodium 137 mmol/L (137-145); Total Bilirubin 0.7 mg/dL (0.2-1.3); Total Protein 7.8 g/dL (6.3-8.2)
[2025-04-18 23:20] LABS: Appearance,Urine Cloudy (Clear); Color,Urine Yellow; Glucose,Urine (UA) Negative (Negative); Ketones,Urine 4+ (Negative); Protein,Urine Trace (Negative); Specific Gravity,Urine 1.032 (1.001-1.035)
[2025-04-18 23:21] LABS: Bacteria,Urine Occasional /hpf; Bilirubin,Urine Negative (Negative); Blood,Urine Negative (Negative); Leukocyte Esterase,Urine Negative (Negative); Mucus,Urine Many /hpf; Nitrite,Urine Negative (Negative); RBC,Urine 3 /hpf (0-5); Squamous Epithelial Cell,Urine 3 /hpf (0-4); Urobilinogen,Urine <2.0 mg/dL (<2.0); WBC,Urine 2 /hpf (0-5)
[2025-04-18] MEDS: ONDANSETRON 4 MG/2 ML VIAL IVP STA (23:36)
--- NOTE | 2025-04-18 23:59 | US ---
EXAMINATION TYPE: Transabdominal DATE OF EXAM: 04/18/2025 10:52 PM COMPARISON: NONE CLINICAL INDICATION: Female, 29 years old with history of Pelvic pain, 8 weeks ; states pain that she thinks is from vomiting. nausea. no pelvic pain per patient. no cramping or bleeding TECHNIQUE: Transabdominal (TA) with grayscale and color Doppler imaging including first trimester pre gnancy. FINDINGS: EXAM MEASUREMENTS: GESTATIONAL AGE / DATING Physician Established: Not yet established Dates by LMP: (7 weeks/3 days) EDC: 12/02/2025 Dates by First Scan: No previous this is first scan Dates by Current Scan for: (6 weeks/4 days) EDC: 12/08/2024 MATERNAL ANATOMY Uterus: 8.9 x 4.4 x 5.5cm Right Ovary: obscured by gas Left Ovary: obscured by gas Post CDS / Adnexa: wnl Presence of free fluid: not seen Presence of corpus luteal cyst: not seen Presence of subchorionic bleed: not seen GESTATION / SURVEY CRL: 0.74 (6 weeks/4 days) Gestational Sac morphology: Normal Yolk Sac (normal less than 6mm): 3mm Cardiac Activity/Heart Rate: 128 bpm Rhythm: Normal IUP: Viable IUP Date of LMP: 02/25/2025 Beta HcG (if available): Not available at this time Single live intrauterine gestation. IMPRESSION: Single live intrauterine with calculated ultrasound age of 6 weeks 4 days by crown rump osmin gth with an estimated date of delivery of 12/08/2024. [facility], , 04/18/2025 11:57 PM
[2025-04-19] MEDS: ONDANSETRON 4 MG ODT STARTER PACK 2 TAB BTL PO STA (00:11)
[2025-04-19 00:14] VITALS: BP 98/60; PULSE 78; TEMP 98.1
== END 2025-04-19 00:14 | disposition home or self-care (01) ==
LOC: EC 21:18
DX: O21.9 Vomiting of pregnancy, unspecified (principal); O26.91 Pregnancy related conditions, unspecified, first trimester; Z88.1 Allergy status to other antibiotic agents; Z91.09 Other allergy status, other than to drugs and biological substances; Z91.048 Other nonmedicinal substance allergy status; Z88.8 Allergy status to other drugs, medicaments and biological substances; Z3A.08 8 weeks gestation of pregnancy
CPT/HCPCS: 36415; 86900; 86901; 80053; 85025; 81001; 84702; 76801; 99284; 96374; 96375; 96361; J1200; J3415; J2765; J2405